=== PATIENT | female | born 1990 | race Caucasian/White ===

== ENCOUNTER 2016-11-09 10:32 | Emergency (ER) | payer OTHER ==
[~2016-11-09] VITALS: Ht 172.7 cm; Wt 84.1 kg
[2016-11-09 11:11] LABS: HEMATOCRIT 40.7 % (36.0-46.0); MCHC 33.9 G/DL (30.0-36.0); MCV 82.6 FL (83-99); MEAN PLAT.VOLUME 10.5 uM^3 (9.5-12.4); PLATELET COUNT 250 K/uL (156-360); RBC DIS.WIDTH-CV 12.7 % (11.8-14.6); RBC DIS.WIDTH-SD 38.4 % (39-53); RED BLOOD COUNT 4.93 M/uL (3.80-5.20); WHITE BLOOD COUNT 7.3 K/uL (4.1-10.2)
[2016-11-09 11:19] LABS: CHLORIDE 106 mEq/L (99-109); POTASSIUM 3.5 mEq/L (3.7-5.4); SODIUM 136 mEq/L (136-147)
[2016-11-09 11:22] LABS: GLUCOSE 89 mg/dL (70-99)
[2016-11-09 11:23] LABS: ANION GAP 13 MEQ/L (2-14)
[2016-11-09 11:24] LABS: TOTAL BILIRUBIN 1.9 mg/dL (0.0-1.0)
[2016-11-09 11:25] LABS: ALKALINE PHOSPHATASE 93 IU/L (3-129); GFR ESTIMATE (CALCULATED) > 59 mL/min/
[2016-11-09 11:27] LABS: DIRECT BILIRUBIN 0.6 mg/dL (0.0-0.3); UREA NITROGEN (BUN) 8 mg/dL (9-23)
[2016-11-09 11:29] LABS: LIPASE 15 U/L (1.0-51.0)
[2016-11-09 11:35] LABS: QUANTITATIVE HCG < 4.0 MIU/ML
[2016-11-09 14:47] LABS: ADD MIUA? YES; BILIRUBIN NEGATIVE; BLOOD TRACE; COLOR YELLOW ((YELLOW)); GLUCOSE (STRIP) NEGATIVE; KETONES 15; LEUKOCYTES SMALL; NITRITE NEGATIVE; PH, URINE 8.5 (5-8); PROTEIN (STRIP) 30; SPECIFIC GRAVITY 1.005 (1.000-1.030); UROBILINOGEN 0.2 MG/DL (0.2-1.0)
[2016-11-09 14:54] LABS: BACTERIA NONE SEEN /HPF; CASTS NONE SEEN /LPF; CRYSTALS NONE SEEN; EPITHELIAL CELLS RARE /HPF; MUCUS NONE SEEN /LPF; RED BLOOD CELLS RARE /HPF (0-5); UCUL ADDED? NO; WHITE BLOOD CELLS 0-5 /HPF (0-5)
[2016-11-09] MEDS ORDERED: CIPRO500 MG PO (14:55)
[2016-11-09 16:01] VITALS: BP 120/79
== END 2016-11-09 16:05 | disposition home or self-care (01) ==
LOC: EME 10:32
PROVIDERS: Emergency Medicine
DX: N39.0 Urinary tract infection, site not specified (principal); Z87.891 Personal history of nicotine dependence
CPT/HCPCS: 74176; 76705; 80048; 80076; 81003; 83690; 84702; 85027; 99281; 99285; J1885; J2060; J2270; J2405; J7030

== ENCOUNTER 2016-11-13 13:21 | Emergency (ER) | payer OTHER ==
[~2016-11-13] VITALS: Ht 172.7 cm; Wt 84.9 kg
[~2016-11-13 13:21] MED LIST: CIPRO500 MG PO
[2016-11-13 14:46] LABS: HEMATOCRIT 38.6 % (36.0-46.0); MCH 27.8 PG (29.0-34.0); MCHC 32.6 G/DL (30.0-36.0); MEAN PLAT.VOLUME 10.5 uM^3 (9.5-12.4); PLATELET COUNT 257 K/uL (156-360); RBC DIS.WIDTH-CV 12.6 % (11.8-14.6); RBC DIS.WIDTH-SD 38.6 % (39-53); RED BLOOD COUNT 4.54 M/uL (3.80-5.20); WHITE BLOOD COUNT 5.2 K/uL (4.1-10.2)
[2016-11-13 14:55] LABS: CHLORIDE 107 mEq/L (99-109)
[2016-11-13 14:56] LABS: SODIUM 138 mEq/L (136-147)
[2016-11-13 14:58] LABS: GLUCOSE 89 mg/dL (70-99); POTASSIUM 4.3 mEq/L (3.7-5.4)
[2016-11-13 14:59] LABS: ANION GAP 8 MEQ/L (2-14)
[2016-11-13 15:00] LABS: TOTAL BILIRUBIN 0.5 mg/dL (0.0-1.0)
[2016-11-13 15:01] LABS: ALKALINE PHOSPHATASE 78 IU/L (3-129); GFR ESTIMATE (CALCULATED) > 59 mL/min/
[2016-11-13 15:01] LABS: ADD MIUA? YES; BILIRUBIN NEGATIVE; BLOOD NEGATIVE; COLOR STRAW ((YELLOW)); GLUCOSE (STRIP) NEGATIVE; KETONES NEGATIVE; LEUKOCYTES SMALL; NITRITE NEGATIVE; PROTEIN (STRIP) NEGATIVE; UROBILINOGEN 0.2 MG/DL (0.2-1.0)
[2016-11-13 15:03] LABS: UREA NITROGEN (BUN) 9 mg/dL (9-23)
[2016-11-13 15:05] LABS: LIPASE 32 U/L (1.0-51.0)
[2016-11-13 15:14] LABS: BACTERIA RARE /HPF; EPITHELIAL CELLS 3+ /HPF; MUCUS TRACE /LPF; RED BLOOD CELLS 0-5 /HPF (0-5); UCUL ADDED? YES
[2016-11-13 15:34] LABS: QUANTITATIVE HCG < 4.0 MIU/ML
[2016-11-13 15:48] LABS: EOSINOPHIL (%) 1.2 % (0-5); EOSINOPHIL COUNT 0.1 K/uL (0-0.3); IMMATURE GRANULOCYTE (%) 0.2 % (0.0-0.7); INSTRUMENT ABS NEUTROPHIL CT 1.9 K/uL; LYMPHOCYTE COUNT 2.8 K/uL (1.0-2.8); MONOCYTE (%) 8.1 % (3-12); MONOCYTE COUNT 0.4 K/uL (0-0.8); NEUTROPHIL (%) 36.8 % (45-76); NEUTROPHIL COUNT 1.9 K/uL (1.8-6.4); PLAT.SUFFICIENCY ADEQUATE
[2016-11-13] MEDS ORDERED: FLAGYL500 MG PO (16:19)
[2016-11-13 16:58] VITALS: BP 00/000
[2016-11-14 13:36] LABS: CHLAMYDIA TRACHOMATIS NEGATIVE; NEISSERIA GONORRHOEAE NEGATIVE
== END 2016-11-13 16:59 | disposition home or self-care (01) ==
LOC: EME 13:21
PROVIDERS: Physician Assistant
DX: N89.8 Other specified noninflammatory disorders of vagina (principal); L73.9 Follicular disorder, unspecified; Z87.891 Personal history of nicotine dependence
CPT/HCPCS: 80053; 81003; 83690; 84702; 85025; 87086; 87210; 87491; 87591; 99281; 99283; J0696; J1885

== ENCOUNTER 2016-11-16 14:21 | Emergency (ER) | payer OTHER ==
[~2016-11-16] VITALS: Ht 172.7 cm; Wt 84.6 kg
[~2016-11-16 14:21] MED LIST changes: +FLAGYL500 MG PO
[2016-11-16 15:10] LABS: EOSINOPHIL (%) 1.6 % (0-5); EOSINOPHIL COUNT 0.1 K/uL (0-0.3); HEMATOCRIT 38.3 % (36.0-46.0); IMMATURE GRANULOCYTE (%) 0.2 % (0.0-0.7); INSTRUMENT ABS NEUTROPHIL CT 3.2 K/uL; LYMPHOCYTE COUNT 2.6 K/uL (1.0-2.8); MCH 28.2 PG (29.0-34.0); MCHC 33.4 G/DL (30.0-36.0); MCV 84.4 FL (83-99); MEAN PLAT.VOLUME 10.5 uM^3 (9.5-12.4); MONOCYTE (%) 5.6 % (3-12); MONOCYTE COUNT 0.4 K/uL (0-0.8); NEUTROPHIL COUNT 3.2 K/uL (1.8-6.4); PLATELET COUNT 246 K/uL (156-360); RBC DIS.WIDTH-CV 12.7 % (11.8-14.6); RBC DIS.WIDTH-SD 38.5 % (39-53); RED BLOOD COUNT 4.54 M/uL (3.80-5.20); WHITE BLOOD COUNT 6.2 K/uL (4.1-10.2)
[2016-11-16 15:18] LABS: CHLORIDE 109 mEq/L (99-109); POTASSIUM 3.6 mEq/L (3.7-5.4); SODIUM 140 mEq/L (136-147)
[2016-11-16 15:20] LABS: GLUCOSE 110 mg/dL (70-99)
[2016-11-16 15:21] LABS: ANION GAP 10 MEQ/L (2-14)
[2016-11-16 15:23] LABS: TOTAL BILIRUBIN 0.7 mg/dL (0.0-1.0)
[2016-11-16 15:24] LABS: ALKALINE PHOSPHATASE 74 IU/L (3-129); GFR ESTIMATE (CALCULATED) > 59 mL/min/
[2016-11-16 15:25] LABS: UREA NITROGEN (BUN) 14 mg/dL (9-23)
[2016-11-16 16:25] LABS: ADD MIUA? YES; BILIRUBIN NEGATIVE; BLOOD NEGATIVE; COLOR YELLOW ((YELLOW)); GLUCOSE (STRIP) NEGATIVE; KETONES NEGATIVE; LEUKOCYTES LARGE; NITRITE NEGATIVE; PROTEIN (STRIP) 30; SPECIFIC GRAVITY 1.021 (1.000-1.030); UROBILINOGEN 0.2 MG/DL (0.2-1.0)
[2016-11-16 16:27] LABS: INTERNAL CONTROL VALID? YES
[2016-11-16] MEDS ORDERED: TRAMADOL HCL50 MG PO (16:36)
[2016-11-16 17:04] VITALS: BP 137/75
[2016-11-16 17:06] LABS: BACTERIA 1+ /HPF; EPITHELIAL CELLS 4+ /HPF; MUCUS RARE /LPF; RED BLOOD CELLS 0-5 /HPF (0-5); UCUL ADDED? YES
== END 2016-11-16 17:09 | disposition home or self-care (01) ==
LOC: EME 14:21
PROVIDERS: Physician Assistant Medical
DX: R10.9 Unspecified abdominal pain (principal); Z87.440 Personal history of urinary (tract) infections; Z97.5 Presence of (intrauterine) contraceptive device; Z87.891 Personal history of nicotine dependence
CPT/HCPCS: 74176; 80053; 81003; 84703; 85025; 87086; 99281; 99284; J1885; J7030

== ENCOUNTER 2016-11-18 20:34 | Emergency (ER) | payer OTHER ==
[~2016-11-18] VITALS: Ht 172.7 cm; Wt 85.5 kg
[~2016-11-18 20:34] MED LIST changes: +TRAMADOL HCL50 MG PO
[2016-11-18 21:45] LABS: HEMATOCRIT 38.3 % (36.0-46.0); MCH 27.8 PG (29.0-34.0); MCHC 32.6 G/DL (30.0-36.0); MCV 85.3 FL (83-99); MEAN PLAT.VOLUME 10.5 uM^3 (9.5-12.4); PLATELET COUNT 240 K/uL (156-360); RBC DIS.WIDTH-CV 12.7 % (11.8-14.6); RED BLOOD COUNT 4.49 M/uL (3.80-5.20); WHITE BLOOD COUNT 6.4 K/uL (4.1-10.2)
[2016-11-18 21:58] LABS: CHLORIDE 110 mEq/L (99-109); POTASSIUM 3.7 mEq/L (3.7-5.4); SODIUM 138 mEq/L (136-147)
[2016-11-18 22:00] LABS: GLUCOSE 86 mg/dL (70-99)
[2016-11-18 22:01] LABS: ANION GAP 6 MEQ/L (2-14)
[2016-11-18 22:04] LABS: ALKALINE PHOSPHATASE 73 IU/L (3-129); GFR ESTIMATE (CALCULATED) > 59 mL/min/; TOTAL BILIRUBIN 0.5 mg/dL (0.0-1.0)
[2016-11-18 22:05] LABS: UREA NITROGEN (BUN) 12 mg/dL (9-23)
[2016-11-18 22:22] LABS: ADD MIUA? YES; BILIRUBIN NEGATIVE; BLOOD SMALL; COLOR YELLOW ((YELLOW)); GLUCOSE (STRIP) NEGATIVE; KETONES NEGATIVE; LEUKOCYTES LARGE; NITRITE NEGATIVE; PROTEIN (STRIP) 30; SPECIFIC GRAVITY 1.011 (1.000-1.030); UROBILINOGEN 0.2 MG/DL (0.2-1.0)
[2016-11-18 22:35] LABS: LIPASE 23 U/L (1.0-51.0)
[2016-11-18 23:02] LABS: BACTERIA RARE /HPF; EPITHELIAL CELLS 2+ /HPF; MUCUS TRACE /LPF; RED BLOOD CELLS 0-5 /HPF (0-5); UCUL ADDED? YES; WHITE BLOOD CELLS 20-30 /HPF (0-5)
[2016-11-18 23:03] LABS: CASTS NONE SEEN /LPF; CRYSTALS NONE SEEN
[2016-11-18 23:48] LABS: QUANTITATIVE HCG < 4.0 MIU/ML
[2016-11-19] MEDS ORDERED: KEFLEX500 MG PO (00:43)
[2016-11-19 01:00] VITALS: BP 139/95
[2016-11-19 13:40] LABS: CHLAMYDIA TRACHOMATIS NEGATIVE; NEISSERIA GONORRHOEAE NEGATIVE
== END 2016-11-19 02:46 | disposition home or self-care (01) ==
LOC: EME 20:34
PROVIDERS: Physician Assistant Medical
DX: N39.0 Urinary tract infection, site not specified (principal); R06.02 Shortness of breath; N89.8 Other specified noninflammatory disorders of vagina; R51 Headache; Z87.891 Personal history of nicotine dependence; Z97.5 Presence of (intrauterine) contraceptive device
CPT/HCPCS: 71020; 74177; 80053; 81003; 83690; 84702; 85027; 87086; 87210; 87491; 87591; 93005; 99281; 99285; J1200; J1885; J2765; J7030

== ENCOUNTER 2016-12-15 12:45 | Emergency (ER) | payer OTHER ==
[~2016-12-15] VITALS: Ht 172.7 cm; Wt 82.3 kg
[~2016-12-15 12:45] MED LIST changes: +KEFLEX500 MG PO
[2016-12-15 13:59] LABS: HEMATOCRIT 33.7 % (36.0-46.0); MCH 28.2 PG (29.0-34.0); MCHC 33.2 G/DL (30.0-36.0); MCV 84.9 FL (83-99); RBC DIS.WIDTH-CV 13.2 % (11.8-14.6); RBC DIS.WIDTH-SD 41.1 % (39-53); RED BLOOD COUNT 3.97 M/uL (3.80-5.20)
[2016-12-15 14:06] LABS: CHLORIDE 111 mEq/L (99-109); SODIUM 137 mEq/L (136-147)
[2016-12-15 14:08] LABS: GLUCOSE 87 mg/dL (70-99)
[2016-12-15 14:09] LABS: ANION GAP 8 MEQ/L (2-14)
[2016-12-15 14:10] LABS: TOTAL BILIRUBIN 0.5 mg/dL (0.0-1.0)
[2016-12-15 14:12] LABS: ALKALINE PHOSPHATASE 62 IU/L (3-129); GFR ESTIMATE (CALCULATED) > 59 mL/min/
[2016-12-15 14:13] LABS: UREA NITROGEN (BUN) 7 mg/dL (9-23)
[2016-12-15 14:15] LABS: LIPASE 16 U/L (1.0-51.0)
[2016-12-15 14:21] LABS: QUANTITATIVE HCG < 4.0 MIU/ML
[2016-12-15 14:40] LABS: PLAT.SUFFICIENCY ADEQUATE
[2016-12-15 14:42] LABS: PLATELET COUNT 165 K/uL (156-360)
[2016-12-15 14:51] LABS: ADD MIUA? YES; BILIRUBIN NEGATIVE; BLOOD LARGE; COLOR YELLOW ((YELLOW)); GLUCOSE (STRIP) NEGATIVE; KETONES NEGATIVE; LEUKOCYTES NEGATIVE; NITRITE NEGATIVE; PROTEIN (STRIP) 100; SPECIFIC GRAVITY 1.031 (1.000-1.030); UROBILINOGEN 0.2 MG/DL (0.2-1.0)
[2016-12-15 15:03] LABS: BACTERIA NONE SEEN /HPF; EPITHELIAL CELLS 1+ /HPF; MUCUS 2+ /LPF; RED BLOOD CELLS TNTC /HPF (0-5); UCUL ADDED? YES
[2016-12-15] MEDS ORDERED: PROBIOTIC ACID1 EAC3 PO (18:07)
[2016-12-15] MEDS ORDERED: DOXYCYCLINE HY100 MG PO (18:07)
[2016-12-15] MEDS ORDERED: NORCO 5/3251 TABLET PO (18:35)
[2016-12-15 18:46] VITALS: BP 117/84
== END 2016-12-15 18:47 | disposition home or self-care (01) ==
LOC: EME 12:45
PROVIDERS: Nurse Practitioner Family
DX: N73.9 Female pelvic inflammatory disease, unspecified (principal); T83.32XA Displacement of intrauterine contraceptive device, initial encounter; R19.7 Diarrhea, unspecified; Z87.891 Personal history of nicotine dependence
CPT/HCPCS: 76856; 80053; 81003; 83690; 84702; 85027; 87086; 99281; 99284; J0696

== ENCOUNTER 2017-07-16 12:26 | Emergency (ER) | payer OTHER ==
[~2017-07-16] VITALS: Ht 172.7 cm; Wt 82.0 kg
[~2017-07-16 12:26] MED LIST changes: +DOXYCYCLINE HY100 MG PO; +NORCO 5/3251 TABLET PO; +PROBIOTIC ACID1 EAC3 PO
[2017-07-16 12:45] VITALS: BP 131/85
[2017-07-16 13:34] LABS: HEMATOCRIT 40.7 % (36.0-46.0); HEMOGLOBIN 13.7 G/DL (11.9-15.5); MCH 28.2 PG (29.0-34.0); MCHC 33.7 G/DL (30.0-36.0); MCV 83.7 FL (83-99); PLATELET COUNT 239 K/uL (156-360); RBC DIS.WIDTH-CV 12.3 % (11.8-14.6); RBC DIS.WIDTH-SD 37.3 % (39-53); RED BLOOD COUNT 4.86 M/uL (3.80-5.20); WHITE BLOOD COUNT 6.2 K/uL (4.1-10.2)
[2017-07-16 13:42] LABS: ALBUMIN 4.9 g/dL (3.2-4.8)
[2017-07-16 13:43] LABS: CHLORIDE 103 mEq/L (99-109); POTASSIUM 3.9 mEq/L (3.7-5.4); SODIUM 140 mEq/L (136-147)
[2017-07-16 13:45] LABS: GLUCOSE 92 mg/dL (70-99); TOTAL PROTEIN 8.6 g/dL (6.4-8.3)
[2017-07-16 13:47] LABS: TOTAL BILIRUBIN 1.3 mg/dL (0.0-1.0)
[2017-07-16 13:48] LABS: ALKALINE PHOSPHATASE 73 IU/L (3-129)
[2017-07-16 13:49] LABS: CREATININE 0.8 mg/dL (0.6-1.3); GFR ESTIMATE (CALCULATED) > 59 mL/min/
[2017-07-16 13:50] LABS: AST (GOT) 15 IU/L (2-34); UREA NITROGEN (BUN) 8 mg/dL (9-23)
[2017-07-16 13:51] LABS: ALT (GPT) 16 IU/L (3-49)
[2017-07-16 14:00] LABS: QUANTITATIVE HCG < 4.0 MIU/ML
== END 2017-07-16 14:27 | disposition left against medical advice (07) ==
LOC: EME 12:26
DX: R10.32 Left lower quadrant pain (principal); R50.9 Fever, unspecified; J34.89 Other specified disorders of nose and nasal sinuses; Z53.21 Procedure and treatment not carried out due to patient leaving prior to being seen by health care provider
CPT/HCPCS: 80053; 81003; 84702; 85027